=== PATIENT | female | born 1950 | race Caucasian/White ===

== ENCOUNTER 2018-01-19 17:34 | Emergency (ER) | payer SELFPAY ==
[~2018-01-19] VITALS: Ht 167.6 cm; Wt 82.0 kg
[2018-01-19 17:46] VITALS: BP 126/81; PULSE 85; RESP 16; TEMP 98.1; O2SAT 97
[2018-01-19] MEDS ORDERED: LEVO25TA4 PO (17:48)
[2018-01-19] MEDS ORDERED: TRAM50TA PO (17:49)
[2018-01-19] MEDS ORDERED: SODIUM CHLORIDE 0.9% FLUSH 10 ML FLUSH IV FLUSH PRN (18:15)
[2018-01-19] MEDS ORDERED: ONDANSETRON HCL 4 MG/2 ML VIAL IVP ONE (18:15)
[2018-01-19] MEDS ORDERED: SODIUM CHLOR 0.9% 1000 ML INJ 1,000 ML IV ONE (18:15)
[2018-01-19 18:20] VITALS: O2SAT 98
--- NOTE | 2018-01-19 18:20 | PD ---
HPI Chief Complaint: GI Complaint Time Seen by Provider: 17:58 Travel History International Travel<30 days: No Contact w/Intl Traveler<30days: No Traveled to known affect area: No History of Present Illness HPI The patient was seen and examined in the presence of the nurse. This patient complains of nausea. She is vacationing. This morning she developed nausea. She is not having vomiting or diarrhea or abdominal pain or fever. She doesn't think she is getting food poisoning. Severity is moderate. Duration one day. No alleviating factors. No Exacerbating factors. She came in by ambulance. PFSH Past Medical History Medical other: Yes (PAIN) Thyroid Disease: Yes Tetanus Vaccination: < 5 Years Influenza Vaccination: Yes ?: Not Past Surgical History Section: Yes (X2) Hysterectomy: Yes Joint Replacement: Yes (RIGHT HIP) Social History Alcohol Use: Yes (~1 DRINK DAILY) Tobacco Use: No Substance Use: No Allergies-Medications (Allergen,Severity, Reaction): Coded Allergies: No Known Allergies (Unverified , 01/19/18) Reported Meds & Prescriptions Reported Meds & Active Scripts Active Zofran (Ondansetron HCl) 4 Mg Tab 4 Mg PO Q6HR PRN Reported Tramadol (Tramadol HCl) 50 Mg Tab 50 Mg PO Q8H PRN Levothyroxine (Levothyroxine Sodium) 25 Mcg Tab 25 Mcg PO DAILY Review of Systems General / Constitutional: No: Fever Eyes: No: Visual changes HENT: No: Headaches Cardiovascular: No: Chest Pain or Discomfort Respiratory: No: Shortness of Breath Gastrointestinal: Positive: Nausea, No: Abdominal Pain Genitourinary: No: Dysuria Musculoskeletal: No: Pain Skin: No Rash Neurologic: No: Weakness Psychiatric: No: Depression Endocrine: No: Polydipsia Hematologic/Lymphatic: No: Easy Bruising Physical Exam Narrative GENERAL: Well-nourished, well-developed patient in no apparent distress. SKIN: Focused skin assessment reveals no rash and nodules. Skin is Warm and dry. HEAD: Atraumatic. Normocephalic. EYES: Pupils equal and round. No scleral icterus. No injection or drainage. ENT: No nasal bleeding or discharge. Mucous membranes pink and moist. NECK: Trachea midline. No JVD. CARDIOVASCULAR: Regular rate and rhythm. No murmur appreciated. RESPIRATORY: No accessory muscle use. Clear to auscultation. Breath sounds equal bilaterally. GASTROINTESTINAL: Abdomen soft, non-tender, nondistended. Hepatic and splenic margins not palpable. MUSCULOSKELETAL: No obvious deformities. No clubbing. No cyanosis. No edema. NEUROLOGICAL: Awake and alert. No obvious cranial nerve deficits. Motor grossly within normal limits. Normal speech. PSYCHIATRIC: Appropriate mood and affect; insight and judgment normal. Data Data Last Documented VS Vital Signs Date Time Temp Pulse Resp B/P (MAP) Pulse Ox O2 Delivery O2 Flow Rate FiO2 01/19/18 18:20 98 Room Air 01/19/18 17:46 98.1 85 16 Orders Orders Basic Metabolic Panel (Bmp) (01/19/18 18:13) Complete Blood Count With Diff (01/19/18 18:13) Iv Access Insert/Monitor (01/19/18 18:13) Ecg Monitoring (01/19/18 18:13) Oximetry (01/19/18 18:13) Ondansetron Inj (Zofran Inj) (01/19/18 18:15) Sodium Chloride 0.9% Flush (Ns Flush) (01/19/18 18:15) Sodium Chlor 0.9% 1000 Ml Inj (Ns 1000 M (01/19/18 18:15) Ed Discharge Order (01/19/18 19:02) Labs Laboratory Tests Test 01/19/18 18:15 White Blood Count 9.1 TH/MM3 Red Blood Count 4.64 MIL/MM3 Hemoglobin 14.3 GM/DL Hematocrit 42.9 % Mean Corpuscular Volume 92.3 FL Mean Corpuscular Hemoglobin 30.7 PG Mean Corpuscular Hemoglobin Concent 33.3 % Red Cell Distribution Width 13.0 % Platelet Count 176 TH/MM3 Mean Platelet Volume 8.2 FL Neutrophils (%) (Auto) 83.7 % Lymphocytes (%) (Auto) 7.9 % Monocytes (%) (Auto) 4.1 % Eosinophils (%) (Auto) 2.1 % Basophils (%) (Auto) 2.2 % Neutrophils # (Auto) 7.6 TH/MM3 Lymphocytes # (Auto) 0.7 TH/MM3 Monocytes # (Auto) 0.4 TH/MM3 Eosinophils # (Auto) 0.2 TH/MM3 Basophils # (Auto) 0.2 TH/MM3 CBC Comment DIFF FINAL Differential Comment Blood Urea Nitrogen 18 MG/DL Creatinine 0.71 MG/DL Random Glucose 99 MG/DL Calcium Level 8.5 MG/DL Sodium Level 144 MEQ/L Potassium Level 4.1 MEQ/L Chloride Level 111 MEQ/L Carbon Dioxide Level 27.5 MEQ/L Anion Gap 6 MEQ/L Estimat Glomerular Filtration Rate 83 ML/MIN MDM Medical Decision Making Medical Screen Exam Complete: Yes Emergency Medical Condition: Yes Medical Record Reviewed: Yes Differential Diagnosis Gastritis, food poisoning, colitis Narrative Course I have reviewed the patient's electronic medical record. IV placed and a liter of normal saline IV bolus given as well as IV Zofran She has soft benign nontender abdomen Lab studies sent Initial vital signs normal CBC and metabolic profiles are normal She looks clinically well on recheck She is discharged after IV fluid given Diagnosis Primary Impression: Nausea alone Additional Instructions: The patient was advised to follow up with their physician and return if they worsen. I have recommended clear liquids for 24 hours, then gradually advance as tolerated. Med/Other Pt SpecificInfo: Prescription(s) given Scripts Ondansetron (Zofran) 4 Mg Tab 4 MG PO Q6HR Y for NAUSEA OR VOMITING, #12 TAB 0 Refills Prov: Minh Delgdaillo MD 01/19/18 Disposition: DISCHARGE HOME Condition: Stable Minh Delgadillo MD Jan 19, 2018 18:20
[2018-01-19 18:34] LABS: AUTOMATED NEUTROPHIL # 7.6 TH/MM3 (1.8-7.7); BASOPHIL # 0.2 TH/MM3 (0-0.2); BASOPHIL % 2.2 % (0.0-2.0); EOSINOPHIL # 0.2 TH/MM3 (0-0.4); EOSINOPHIL % 2.1 % (0.0-4.0); HEMATOCRIT 42.9 % (35.0-46.0); HEMOGLOBIN 14.3 GM/DL (11.6-15.3); LYMPH % 7.9 % (9.0-44.0); LYMPHOCYTE # 0.7 TH/MM3 (1.0-4.8); MEAN CELL VOLUME 92.3 FL (80.0-100.0); MEAN CORPUSCULAR HEMOGLOBIN 30.7 PG (27.0-34.0); MEAN CORPUSCULAR HGB CONC 33.3 % (32.0-36.0); MEAN PLATELET VOLUME 8.2 FL (7.0-11.0); MONO % 4.1 % (0.0-8.0); MONOCYTE # 0.4 TH/MM3 (0-0.9); NEUT % 83.7 % (16.0-70.0); PLATELET COUNT 176 TH/MM3 (150-450); RED BLOOD COUNT 4.64 MIL/MM3 (4.00-5.30); WHITE BLOOD COUNT 9.1 TH/MM3 (4.0-11.0)
[2018-01-19] MEDS ORDERED: ZOFR4TAB PO (18:40)
[2018-01-19 18:55] LABS: CALCIUM 8.5 MG/DL (8.5-10.1)
[2018-01-19 18:56] LABS: BICARBONATE 27.5 MEQ/L (21.0-32.0)
[2018-01-19 18:59] LABS: CREATININE 0.71 MG/DL (0.50-1.00)
[2018-01-19 20:10] VITALS: BP 136/82
== END 2018-01-19 20:39 | disposition home or self-care (01) ==
LOC: PHED 17:34
DX: R11.0 Nausea (principal)
CPT/HCPCS: 80048; 85025; 96361; 96374; 99284; J2405; J7030